=== PATIENT | female | born 1930 | race Caucasian/White ===

== ENCOUNTER 2017-01-05 08:35 | Day surgery (SDC) | payer MEDICARE ==
--- NOTE | 2017-01-05 09:25 | OR ---
Anesthesia Pre Procedure Eval Pre Procedure Evaluation: Last Vital Signs Temp 36.4 C L 01/05/17 08:45 Pulse 90 01/05/17 08:45 Resp 16 01/05/17 08:45 BP 109/85 01/05/17 08:45 Pulse Ox 93 01/05/17 08:45 PRE PROCEDURE EVALUATION:: DATE: 01/05/2017 TIME: 914 INDICATIONS: Radicular low back pain. Multilevel spinal stenosis. Multilevel disc bulge. PAST MEDICAL HISTORY: Has had previous thoracic epidural steroid injections and has had a cervical epidural injection in the past. EXAM: Lungs clear and equal. Heart rate regular. Patient complains of low back pain that radiates occasionally into her left hip. ASSESSMENT OF MEDICAL STATUS: Procedure was some benefits were explained to and accepted by the patient. No contraindication to epidural steroid injection. PLANNED PROCEDURE : Fluoroscopy-guided epidural steroid injection at L3 4 or L4 5. Home Medications: HOME MEDICATIONS Ascorbic Acid [Vitamin C] 500 mg PO DAILY 12/14/14 [Last Taken 08/31/15] Cholecalciferol (Vitamin D3) [Vitamin D] 1,000 unit PO DAILY 12/14/14 [Last Taken 08/31/15] Citalopram Hydrobromide [Celexa] 20 mg PO BID 12/14/14 [Last Taken 08/31/15] Diazepam [Valium] 5 mg PO BID 12/14/14 [Last Taken 08/31/15] Montelukast Sodium [Singulair] 10 mg PO QPM 12/14/14 [Last Taken 08/31/15] Naproxen Sodium [Aleve] 220 mg PO BID PRN 12/14/14 [Last Taken 08/31/15] Oxybutynin Chloride [Ditropan Xl] 10 mg PO DAILY 12/14/14 [Last Taken 08/31/15] Primidone [Mysoline] 50 mg PO HS 12/14/14 [Last Taken 08/31/15] Primidone [Mysoline] 100 mg PO QAM 12/14/14 [Last Taken 08/31/15] Aspirin [Aspirin Enteric Coated] 81 mg PO DAILY 12/29/16 [Last Taken Unknown] Fluticasone Propionate [Flovent Diskus] 1 puff IH BID 12/29/16 [Last Taken Unknown] Ranitidine HCl [Zantac] 150 mg PO BID 12/29/16 [Last Taken Unknown]
[2017-01-05] MEDS ORDERED: DEXAMETHASONE SOD PHOSPHATE 10 MG/ML VIAL IJ ONE (09:55)
[2017-01-05] MEDS ORDERED: IOPAMIDOL 20 ML VIAL IJ ONE (09:55)
[2017-01-05] MEDS ORDERED: LIDOCAINE HCL/PF 5 ML VIAL IJ ONE (09:55)
--- NOTE | 2017-01-05 10:04 | OR ---
Anesthesia Procedure Note - Anesthesia Procedure Note Narrative: Vital Signs - Last Taken Temp 36.4 C L 01/05/17 08:45 Pulse 75 01/05/17 09:48 Resp 18 01/05/17 09:48 BP 129/79 01/05/17 09:48 Pulse Ox 95 01/05/17 09:48 O2 Oxygen Delivery Method Room Air 01/05/17 10:00 ANESTHESIA PROCEDURE NOTE Date of Procedure: 01/05/2017 Time of procedure: 9:30. Performed by: Andrey Cavanaugh CRNA Gas Well Pumper: None. Preprocedure diagnosis: Radicular low back pain. Multilevel disc bulge. Spinal stenosis.. Post procedure diagnosis: Same. Procedure: Epidural Steroid Injection at L3 4.. Indications: Radicular low back pain. Findings: See below. Details of the procedure: The patient was brought back to operating room #3. The patient was then placed in the prone position. Back was prepped with DuraPrep. Patient was then draped in sterile fashion. Lidocaine 1% was infiltrated to the skin and subcutaneous tissues at the level of the L4 5 interspace. Unable to advance needle into epidural space at this level. 1% lidocaine was infiltrated over the L3 4 interspace. The epidural space was identified using a 20-gauge Tuohy needle with [id number] technique and fluoroscopic guidance. A total of 3 mL of Isovue-200 contrast dye was injected in the first the AP and lateral positions to verify needle placement. Dexamethasone 10 mg + 5 mL of 1% preservative-free lidocaine was administered to the epidural space after negative aspiration for blood and CSF. The Tuohy needle was removed intact. A Band-Aid was applied to the patient's back. The patient was then placed in a supine position for 5 minutes before returning to the ambulatory surgical unit. Total fluoroscopy time was 34 seconds. Total dose 14.75 m/gy. EBL: Minimal. Fluids: N/A. Specimen: N/A. Post procedure condition: The patient tolerated the procedure well. No complications were noted. Thank you for this consultation. Andrey Cavanaugh CRNA
[2017-01-05 10:37] VITALS: BP 129/72
== END 2017-01-05 08:36 | disposition home or self-care (01) ==
LOC: AMB 08:35
PROVIDERS: ATTEND Family Medicine
PROC: 3E0R3BZ Introduction of Anesthetic Agent into Spinal Canal, Percutaneous Approach (ICD-10-PCS; 2017-01-05)
PROC: BR1 Imaging, Axial Skeleton, Except Skull and Facial Bones, Fluoroscopy (ICD-10-PCS; 2017-01-05)
PROC: 3E0R33Z Introduction of Anti-inflammatory into Spinal Canal, Percutaneous Approach (ICD-10-PCS; principal; 2017-01-05 08:00)
DX: M54.16 Radiculopathy, lumbar region (principal); M51.26 Other intervertebral disc displacement, lumbar region